=== PATIENT | female | born 1970 | race Caucasian/White ===

== ENCOUNTER 2022-05-26 14:38 | Inpatient (IN) | payer MEDICAID, OTHER ==
[~2022-05-26] VITALS: Ht 160 cm; Wt 69.9 kg
[2022-05-26 14:54] VITALS: BP_SYST 130
--- NOTE | 2022-05-26 14:58 | NUR ---
Patient triaged and placed in ER HALLWAY. VSS and patient appears in no acute distress at this time. Accompanied by BLS , awaiting available bed, and MD notified of need for MSE.
[2022-05-26] MEDS ORDERED: KETOROLAC TROMETHAMINE 60 MG/2 ML VIAL IM ONE (15:15)
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
--- NOTE | 2022-05-26 15:52 | NUR ---
Patient to ER H3 for evaluation. Side rails up.
--- NOTE | 2022-05-26 15:56 | NUR ---
ER at bedside examining patient.
--- NOTE | 2022-05-26 17:10 | NUR ---
# 20 gauge angiocath placed to lt hand. Use of asceptic technique. Opsite placed over site. Blood return noted. Blood for lab drawn from site. Flushed with 10 cc of normal saline. No evidence of infiltration noted. Patient tolerated well.
--- NOTE | 2022-05-26 17:40 | NUR ---
COVID SWAB COLLECTED
--- NOTE | 2022-05-26 17:45 | NUR ---
PHONE NUMBER FOR SONNATHANAEL, PROVIDED. [phone]
[2022-05-26 17:50] LABS: BASOPHILS % (AUTO) 0.3 % (0.0-2.0); EOSINOPHILS # (AUTO) 0.1 K/uL (0.0-0.4); EOSINOPHILS % (AUTO) 1.5 % (0.0-4.0); HEMOGLOBIN 13.7 g/dL (12.0-16.0); LYMPHOCYTES % (AUTO) 10.9 % (20.5-51.5); MEAN CORPUSCULAR HEMOGLOBIN 28 pg (27-31); MEAN CORPUSCULAR HGB CONC 33 % (32-36); MEAN CORPUSCULAR VOLUME 86 fL (79.0-98.0); MONOCYTES # (AUTO) 0.5 K/uL (0.0-1.0); MONOCYTES % (AUTO) 5.7 % (1.7-9.3); NEUTROPHILS # (AUTO) 7.5 K/uL (1.8-7.7); NEUTROPHILS % (AUTO) 81.6 % (40.0-70.0); PLATELET COUNT (AUTO) 200 K/uL (130-430); RED BLOOD CELL COUNT(AUTO) 4.86 MIL/uL (4.2-6.2); RED CELL DISTRIBUTION WIDTH 13.7 % (9.0-15.0); WHITE BLOOD COUNT (AUTO) 9.2 K/uL (4.8-10.8)
[2022-05-26 17:58] LABS: CALCIUM 8.8 mg/dL (8.4-11.0); CREATININE 0.52 mg/dL (0.55-1.30)
[2022-05-26 18:04] LABS: ALBUMIN 3.5 g/dL (3.4-4.8); TOTAL BILIRUBIN 0.5 mg/dL (0.0-1.0)
--- NOTE | 2022-05-26 18:17 | NUR ---
Medication reconciliation completed with information provided by patient. Any prior medication reconciliation on file was reviewed and corrected.
--- NOTE | 2022-05-26 19:05 | NUR ---
REPORT GIVEN TO REED FOR CONTINUATION OF CARE
--- NOTE | 2022-05-26 19:10 | NUR ---
REC REPORT FROM SURESH VELASQUEZ. PT AWAKE IN BED, A&O X4 AND FOLLOWING COMMANDS. PT REPORTING BACK PAIN 03/18. MADE AWARE. VSS. SAFETY PRECAUTIONS IN PLACE.
[2022-05-26] MEDS ORDERED: MORPHINE 4 MG INJ. 4 MG/ML VIAL IVP ONE (19:15)
[2022-05-26] MEDS ORDERED: ONDANSETRON HCL 4 MG/2 ML VIAL IVP PRN (22:00)
[2022-05-26] MEDS: D5/0.45 NS 1,000 ML IV SCH (22:40)
--- NOTE | 2022-05-26 23:00 | NUR ---
PT RESTING IN BED ASLEEP. NOTED EVEN AND UNLABORED RESP, NAD. SAFETY PRECAUTIONS IN PLACE.
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
[2022-05-27] MEDS: MORPHINE 4 MG INJ. 4 MG/ML VIAL IVP PRN ×2 (01:57→10:41)
--- NOTE | 2022-05-27 03:16 | NUR ---
PT RESTING RESTING IN BED. PT GIVEN MORE BLANKETS AND REPOSITIONED FOR COMFORT. EVEN AND UNLABORED RESP, NAD.
[2022-05-27 04:49] LABS: BASOPHILS % (AUTO) 0.4 % (0.0-2.0); EOSINOPHILS # (AUTO) 0.2 K/uL (0.0-0.4); HEMATOCRIT 38.6 % (36-48); HEMOGLOBIN 12.7 g/dL (12.0-16.0); MEAN CORPUSCULAR HEMOGLOBIN 28 pg (27-31); MEAN CORPUSCULAR HGB CONC 33 % (32-36); MEAN CORPUSCULAR VOLUME 85 fL (79.0-98.0); MONOCYTES # (AUTO) 0.4 K/uL (0.0-1.0); MONOCYTES % (AUTO) 6.2 % (1.7-9.3); NEUTROPHILS # (AUTO) 4.6 K/uL (1.8-7.7); NEUTROPHILS % (AUTO) 74.4 % (40.0-70.0); PLATELET COUNT (AUTO) 190 K/uL (130-430); RED BLOOD CELL COUNT(AUTO) 4.56 MIL/uL (4.2-6.2); RED CELL DISTRIBUTION WIDTH 13.8 % (9.0-15.0); WHITE BLOOD COUNT (AUTO) 6.1 K/uL (4.8-10.8)
[2022-05-27 05:00] LABS: CALCIUM 8.7 mg/dL (8.4-11.0); CREATININE 0.59 mg/dL (0.55-1.30)
[2022-05-27 05:14] LABS: THYROID STIMULATING HORMONE 3.7 uIu/mL (0.36-3.74)
--- NOTE | 2022-05-27 07:13 | NUR ---
REPORT GIVEN TO BO VELASQUEZ TO ASSUME CARE.
--- NOTE | 2022-05-27 07:46 | NUR ---
Pt report recieved by Koko VELASQUEZ. Pt is asleep without complaint.
--- NOTE | 2022-05-27 07:56 | NUR ---
Pt awoke and notes 10/10 on pain scale. Pt is rigid and lying on left side flat.
[2022-05-27] MEDS: MORPHINE 2 MG/ML INJ. SYRINGE IVP PRN ×2 (08:11→12:27)
--- NOTE | 2022-05-27 08:18 | NUR ---
RON Lozano administered IVP Morphine for pain per MD order.
--- NOTE | 2022-05-27 10:18 | NUR ---
Patient will be admitted to care of MD MARTIN. Admitted to MEDSURG unit. Will go to room 109 C. Belongings list completed. Complete and up to date summary report printed. SBAR report to be given at bedside with opportunity for questions.
[2022-05-27 11:05] VITALS: BP_SYST 115
[2022-05-27 12:20] VITALS: BP_SYST 110
[2022-05-27] MEDS: D5/0.45 NS 1,000 ML IV SCH ×3 (12:31→23:14)
[2022-05-27] MEDS: HYDROmorphone 2 MG/ML VIAL IVP PRN ×2 (15:35→21:13)
[2022-05-27 16:00] VITALS: BP_SYST 116
--- NOTE | 2022-05-27 19:15 | NUR ---
OPENING NOTES Patient resting in bed - no s/s pain or distress noted. Respirations even and unlabored - head of bed elevated. IV site patent - no s/s redness, infection, or infiltration. Bed locked and in lowest position. Call light within reach - bed alarm on.
[2022-05-27 20:00] VITALS: BP_SYST 133
[2022-05-28] VITALS: BP_SYST 123
[2022-05-28] MEDS: HYDROmorphone 2 MG/ML VIAL IVP PRN ×3 (01:33→18:21)
[2022-05-28 07:27] LABS: BASOPHILS % (AUTO) 0.3 % (0.0-2.0); EOSINOPHILS # (AUTO) 0.1 K/uL (0.0-0.4); EOSINOPHILS % (AUTO) 1.7 % (0.0-4.0); HEMATOCRIT 35.6 % (36-48); HEMOGLOBIN 11.8 g/dL (12.0-16.0); LYMPHOCYTES # (AUTO) 0.8 K/uL (1.0-5.5); MEAN CORPUSCULAR HEMOGLOBIN 28 pg (27-31); MEAN CORPUSCULAR HGB CONC 33 % (32-36); MEAN CORPUSCULAR VOLUME 85 fL (79.0-98.0); MONOCYTES # (AUTO) 0.5 K/uL (0.0-1.0); MONOCYTES % (AUTO) 7.4 % (1.7-9.3); NEUTROPHILS # (AUTO) 5.5 K/uL (1.8-7.7); NEUTROPHILS % (AUTO) 79.6 % (40.0-70.0); PLATELET COUNT (AUTO) 182 K/uL (130-430); RED BLOOD CELL COUNT(AUTO) 4.19 MIL/uL (4.2-6.2); RED CELL DISTRIBUTION WIDTH 13.4 % (9.0-15.0); WHITE BLOOD COUNT (AUTO) 6.9 K/uL (4.8-10.8)
[2022-05-28 07:46] LABS: CREATININE 0.55 mg/dL (0.55-1.30)
[2022-05-28 08:00] VITALS: BP_SYST 141
[2022-05-28] MEDS: D5/0.45 NS 1,000 ML IV SCH ×2 (14:00→20:40)
[2022-05-28 16:00] VITALS: BP_SYST 135
[2022-05-28 20:00] VITALS: BP_SYST 148
[2022-05-29] VITALS: BP_SYST 125
[2022-05-29] MEDS: HYDROmorphone 2 MG/ML VIAL IVP PRN ×3 (00:18→16:25)
[2022-05-29 04:00] VITALS: BP_SYST 132
--- NOTE | 2022-05-29 07:00 | NUR ---
NO SIGNIFCANT CHANGES NOTED ALL NEEDS ANTICIPATED AND MET
[2022-05-29 08:00] VITALS: BP_SYST 135
[2022-05-29] MEDS: D5/0.45 NS 1,000 ML IV SCH ×2 (08:33→20:00)
[2022-05-29 12:00] VITALS: BP_SYST 130
--- NOTE | 2022-05-29 12:00 | NUR ---
PIN ATTACHER ACSW Donna responded to a request for Social Service support. ACSW made 3 attempts to wake patient but was unsuccessful. Drainlayer will attempt at a later time, and continue to be available as needed
[2022-05-29 16:00] VITALS: BP_SYST 121
--- NOTE | 2022-05-29 18:48 | NUR ---
PATIENT RESTING IN BED, EATING DINNER, AAO x4, RESPIRATIONS EVEN AND UL ON RA. DENIES PAIN/DISCOMFORT. IVF INFUSING PER MD ORDER. ALL NEEDS MET. PT REMAINS STABLE. BED IN LOW, SIDE RAILS x2, CALL LIGHT IN EASY REACH.
[2022-05-29 20:00] VITALS: BP_SYST 129
--- NOTE | 2022-05-29 21:00 | NUR ---
GOT THE REPORT LATE. PT IS ALERT AND ORIENTED, RESTING IN BED, SEEMS LETHARGY, PT IS UNSTEADY, HAS PAIN RELATED HER BACK. SHE IS AN ROOM AIR. BED LOW
[2022-05-29] MEDS: MORPHINE 2 MG/ML INJ. SYRINGE IVP PRN (22:22)
[2022-05-30 01:23] VITALS: BP_SYST 136
--- NOTE | 2022-05-30 02:00 | NUR ---
PT IS AWAKE, NEEDING PAIN MEDICATION. NO ACUTE DISTRESS NOTED.
[2022-05-30] MEDS: MORPHINE 2 MG/ML INJ. SYRINGE IVP PRN (03:15)
[2022-05-30 08:00] VITALS: BP_SYST 134
[2022-05-30] MEDS: HYDROmorphone 2 MG/ML VIAL IVP PRN ×3 (09:27→20:06)
[2022-05-30 11:30] VITALS: BP_SYST 134
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
[2022-05-30 15:31] VITALS: BP_SYST 129
[2022-05-30] MEDS: D5/0.45 NS 1,000 ML IV SCH (16:09)
--- NOTE | 2022-05-30 18:13 | NUR ---
PATIENT RESTING IN BED, EATING DINNER, RESPIRATIONS EVEN AND UL ON RA. NO C/O PAIN/DISCOMFORT AT THIS TIME. IVF INFUSING TO IV SITE PER ORDER, ALL NEEDS MET. BED IN LOW, SIDE RAILS x2, CALL LIGHT IN EASY REACH. NO SIGNIFICANT CHANGES THROUGHOUT SHIFT.
--- NOTE | 2022-05-30 19:15 | NUR ---
REPORT GIVEN TO PM NURSE KIM FOR CONTINUITY OF CARE. PATIENT REMAINS STABLE.
[2022-05-30 20:00] VITALS: BP_SYST 119
[2022-05-31 04:00] VITALS: BP_SYST 126
[2022-05-31] MEDS: D5/0.45 NS 1,000 ML IV SCH ×3 (04:31→22:18)
--- NOTE | 2022-05-31 06:49 | NUR ---
Patient in bed. No acute distress noted. Will continue to monitor.
--- NOTE | 2022-05-31 07:34 | NUR ---
PHYSICAL THERAPY CO-SIGN The Physical Therapy Progress Notes documented by Machine Worker have been reviewed. Reviewed/Co-Signed by: Rich Lemons Documentation Done by: SHARI JIMENEZ PTA Addendum: 05/31/22 at 0734 by Rich Lemons PT Amended: Links added.
--- NOTE | 2022-05-31 07:45 | NUR ---
Awake and oriented. No shortness of pain on room air. Reported pain on the lower back. Did not ask to be medicated. Wants to get up from bed and walk to the restroom. Advised to wait for physical therapist to come and evaluate activity tolerance; patient verbalized understanding. IV infusing well. Safety checks done. Call light and things needed within reach.
[2022-05-31 08:00] VITALS: BP_SYST 122
[2022-05-31] MEDS: HYDROmorphone 2 MG/ML VIAL IVP PRN ×3 (08:37→20:29)
--- NOTE | 2022-05-31 08:40 | NUR ---
Worsening pain on the back. Medicated as requested.
--- NOTE | 2022-05-31 12:00 | NUR ---
ALERT. NO SHORTNESS OF BREATH OR PAIN. IV INFUSING WELL. NEEDS ATTENDED.
[2022-05-31 12:15] VITALS: BP_SYST 124
--- NOTE | 2022-05-31 16:00 | NUR ---
REPORTED PAIN IN THE BACK, /10. NO SHORTNESS OF BREATH. MEDICATED. PATIENT FELL ASLEEP 10 MINS AFTER. SAFETY CHECKS DONE. CALL LIGHT WITHIN REACH.
[2022-05-31 16:05] VITALS: BP_SYST 114
--- NOTE | 2022-05-31 18:48 | NUR ---
ALL NEEDS MET THROUGHOUT SHIFT. NO SHORTNESS OF BREATH OR PAIN AT THIS TIME. SAFETY CHECKS DONE.
[2022-05-31 20:00] VITALS: BP_SYST 130
--- NOTE | 2022-05-31 21:52 | NUR ---
Patient in bed. All needs met. No acute distress noted. Will continue to monitor.
[2022-05-31 22:46] VITALS: BP_SYST 128
[2022-06-01 00:14] VITALS: BP_SYST 128
[2022-06-01] MEDS: HYDROmorphone 2 MG/ML VIAL IVP PRN ×3 (03:34→17:27)
[2022-06-01] MEDS: D5/0.45 NS 1,000 ML IV SCH ×2 (08:00→15:11)
[2022-06-01 11:28] VITALS: BP_SYST 110
[2022-06-01 15:39] VITALS: BP_SYST 108
[2022-06-01 16:00] VITALS: BP_SYST 108
[2022-06-01 19:50] VITALS: BP_SYST 120
--- NOTE | 2022-06-01 19:50 | NUR ---
PM ASSESSMENT; -Pt is ax/o4,resting in bed comfortably.Pt denies any chest pain,pain,sob,or any acute distress. Discussed poc,all safety measures,pt verbalized understanding. Generalized weakness noted. Fall precaution in place. Call light w/in reach,side rails x3,call light w/in reach. Cont to monitor pt.
--- NOTE | 2022-06-01 22:20 | NUR ---
ROUNDS; -Pt is asleep in bed comfortably. No s/s any pain,sob,or any acute distress noted. Fall precaution in place. Call light w/in reach,side rails x3,call light w/in reach. Cont to monitor pt.
[2022-06-02 00:21] VITALS: BP_SYST 122
[2022-06-02] MEDS: D5/0.45 NS 1,000 ML IV SCH ×2 (00:45→15:09)
[2022-06-02] MEDS: HYDROmorphone 2 MG/ML VIAL IVP PRN ×3 (00:50→21:19)
--- NOTE | 2022-06-02 00:50 | NUR ---
PAIN MGMT -Pt is c/o generalized pain gave Dilaudid 2mg IVP for pain mgmt. will reassess pain level w/in 30mins. cont to monitor pt
--- NOTE | 2022-06-02 03:08 | NUR ---
ROUNDS; -Pt is asleep. No s/s any acute distress noted. IVF infusing well, no s/s any infiltration noted. Bed alarmed,side rails x3, call light w/in reach. Cont to monitor pt.
--- NOTE | 2022-06-02 06:47 | NUR ---
CLOSING NOTES; -Pt is resting in bed comfortably. No s/s any acute distress noted. IVF infusing well, no s/s any infiltration noted. Bed alarmed,side rails x3, call light w/in reach. will endorse to next nurse to cont care.
[2022-06-02 08:52] VITALS: BP_SYST 131
[2022-06-02 11:31] VITALS: BP_SYST 106
[2022-06-02 15:20] VITALS: BP_SYST 127
[2022-06-02 16:16] VITALS: BP_SYST 127
--- NOTE | 2022-06-02 19:40 | NUR ---
Opening note Received SBAR report from RON Bean. Received patient resting in bed awake, AOx4. No distress and nonlabored breathing on room air. Patient is talking on cell phone. IVF infusing via IV to RFA. Bed is locked in lowest position, side rails up 3x, bed alarm on and call light w/in reach.
[2022-06-02 20:00] VITALS: BP_SYST 136
--- NOTE | 2022-06-02 21:15 | NUR ---
IV start IV to RFA is infiltrated, there is redness and it is tender to touch. Stopped IVF and removed IV, catheter tip visualized, no active bleeding. placed ice pack on RFA. # 22 gauge angiocath placed to left wrist. Blood return noted. Flushed with 10 cc of normal saline. Patient tolerated, resumed IVF.
--- NOTE | 2022-06-02 21:19 | NUR ---
severe pain Patient reporting severe pain to back 8/10; administered Dilaudid as ordered, will continue to monitor.
[2022-06-03 00:10] VITALS: BP_SYST 122
[2022-06-03] MEDS: HYDROmorphone 2 MG/ML VIAL IVP PRN ×4 (02:12→20:37)
[2022-06-03] MEDS: D5/0.45 NS 1,000 ML IV SCH ×3 (02:13→16:10)
--- NOTE | 2022-06-03 02:13 | NUR ---
c/o pain, incontinent Patient reporting severe pain to back 9/10; administered Dilaudid as ordered, reviewed side effects and she verbalized understanding. Denies nausea, will continue to monitor. IVF bag empty and hung new bag of D5 1/2 NS. Infusing well, no s/sx of infiltration. She called and informed she is wet/incontinent of urine. Nurse data analysis assistant in room and assisted with pericare. She was provided with additional blanket, wctm.
[2022-06-03 08:44] VITALS: BP_SYST 111
[2022-06-03 13:39] VITALS: BP_SYST 123
[2022-06-03 18:20] VITALS: BP_SYST 112
[2022-06-03 20:30] VITALS: BP_SYST 124
--- NOTE | 2022-06-03 20:37 | NUR ---
Opening notes/Pain Pt AAOx4, VSS, afebrile. No s/s distress noted. Pt c/o back pain 01/16, medicated with Dilaudid 2mg IVP PRN. Instructed pt to do deep breathing/coughing exercises, pt demonstrated understanding. IVF infusing Lwrist 22 at ordered rate. Call light within reach. Bed low, locked, siderails up x3. To monitor.
[2022-06-04 00:21] VITALS: BP_SYST 118
[2022-06-04] MEDS: D5/0.45 NS 1,000 ML IV SCH (01:06)
[2022-06-04] MEDS: HYDROmorphone 2 MG/ML VIAL IVP PRN ×2 (01:06→07:52)
--- NOTE | 2022-06-04 07:55 | NUR ---
PHYSICAL THERAPY CO-SIGN The Physical Therapy Progress Notes documented by Bellhop have been reviewed. Reviewed/Co-Signed by: Rich Lemons Documentation Done by: LANDRY FARR PTA Addendum: 06/04/22 at 0755 by Rich Lemons PT Amended: Links added.
[2022-06-04 07:56] VITALS: BP_SYST 117
[2022-06-04] MEDS ORDERED: HYDR-3917 PO (11:14)
[2022-06-04 11:40] VITALS: BP_SYST 105
[2022-06-04 11:50] VITALS: BP_SYST 105
--- NOTE | 2022-06-04 12:53 | NUR ---
PHYSICAL THERAPY CO-SIGN The Physical Therapy Progress Notes documented by Client Associate have been reviewed. Reviewed/Co-Signed by: Rich Lemons Documentation Done by: SHARI JIMENEZ PTA Addendum: 06/04/22 at 1253 by Rich Lemons PT Amended: Links added.
--- NOTE | 2022-06-04 13:24 | NUR ---
PT DISCHARGED HOME. ALL INSTRUCTIONS PROVIDED TO PT. ALL QUESTIONS AND CONCERNS ADDRESSED. IV DISCONTINUED WITH CATHETER INTACT. PT TAKEN BY WHEEL CHAIR AND PT WAS WEARING TLSO BRACE UPON DISCHARGE. PT DISCHARGE IN STABLE CONDITION WITH PT'S MOTHER.
== END 2022-06-04 13:24 | disposition home or self-care (01) | DRG 347 ==
LOC: SED 14:38 → SMU 21:54
PROVIDERS: ADMIT Internal Medicine; ATTEND Internal Medicine
DX: S32.029A Unspecified fracture of second lumbar vertebra, initial encounter for closed fracture (principal); Z20.822 Contact with and (suspected) exposure to COVID-19; X58.XXXA Exposure to other specified factors, initial encounter; Y93.89 Activity, other specified; Y92.89 Other specified places as the place of occurrence of the external cause; Y99.8 Other external cause status; V02.99XA Pedestrian with other conveyance injured in collision with two- or three-wheeled motor vehicle, unspecified whether traffic or nontraffic accident, initial encounter
CPT/HCPCS: 36415; 70450-TC; 72125-TC; 72128; 72131; 72148; 72192-TC; 76376; 80048; 80053; 84443; 84484; 85025; 96372; 96374; 97110-GP; 97116-GP; 97530-GP; 99285; J1170; J1885; J2270; J2405